=== PATIENT | male | born 1945 | race Caucasian/White ===

== ENCOUNTER 2017-04-06 17:29 | Observation (INO) | payer MEDICARE ==
[~2017-04-06] VITALS: Ht 188 cm; Wt 136.5 kg
[2017-04-06] VITALS (7 sets, daily range): BP systolic 137–177; BP diastolic 72–95; PULSE 85–99; RESP 16–20; TEMP 97.1–99.4; O2SAT 95–98
[2017-04-06] MEDS ORDERED: WARF-23 PO (17:50)
[2017-04-06] MEDS ORDERED: VITA1000 PO (17:50)
[2017-04-06] MEDS ORDERED: GLIM4TAB PO (17:50)
[2017-04-06] MEDS ORDERED: LISI-515 PO (17:50)
[2017-04-06] MEDS ORDERED: ATOR10TA15 PO (17:50)
[2017-04-06] MEDS ORDERED: HYDR12.57 PO (17:50)
[2017-04-06] MEDS ORDERED: EZET10 PO (17:50)
[2017-04-06] MEDS ORDERED: COEN50CH CHEW (17:50)
[2017-04-06] MEDS ORDERED: VITAMIN B12 (17:50)
[2017-04-06] MEDS ORDERED: METO100T PO (17:50)
[2017-04-06] MEDS ORDERED: METF1000 PO (17:50)
[2017-04-06] MEDS ORDERED: MAGN250T11 PO (17:50)
--- NOTE | 2017-04-06 17:53 | PD ---
HPI Chief Complaint: General Weakness Time Seen by Provider: 17:46 Travel History International Travel<30 days: No Contact w/Intl Traveler<30days: No Traveled to known affect area: No History of Present Illness HPI 71-year-old male with history of A. fib on Coumadin, CAD, CABG, here for evaluation of generalized malaise, nausea, generalized weakness. Symptoms started today. He is also had a nonproductive cough. He is unsure if he has had any fevers. He denies chest pain or dyspnea. No abdominal pain. No diarrhea. PFSH Past Medical History Hx Anticoagulant Therapy: Yes Cardiovascular Problems: Yes (TRIPLE BYPASS, A. FIB, HTN CHOL) Diabetes: Yes Social History Tobacco Use: No Allergies-Medications (Allergen,Severity, Reaction): Coded Allergies: No Known Allergies (Unverified , 04/06/17) Reported Meds & Prescriptions Reported Meds & Active Scripts Active Reported Vitamin D-1000 (Cholecalciferol) 1,000 Unit Tab 5,000 Units PO MOWEFR [Vitamin B12] Coq10 Gummies Adult (Coenzyme Q10 (Ubidecarenone)) 50 Mg Chew 200 Mg CHEW DAILY Magnesium Oxide 250 Mg Tab 250 Mg PO DAILY Glimepiride 4 Mg Tab 4 Mg PO BIDAC Metformin (Metformin HCl) 1,000 Mg Tab 1,000 Mg PO BIDPC Metoprolol Tartrate 100 Mg Tab 100 Mg PO BID Zetia (Ezetimibe) 10 Mg Tab 10 Mg PO DAILY Warfarin 5 Mg Tab 5 Mg PO DAILY Atorvastatin (Atorvastatin Calcium) 10 Mg Tab 10 Mg PO HS Lisinopril 20 Mg Tab 20 Mg PO DAILY Hydrochlorothiazide 12.5 Mg Cap 12.5 Mg PO DAILY Review of Systems Except as stated in HPI: all other systems reviewed are Neg Physical Exam Narrative GENERAL: Well-developed, well-nourished, awake, alert, no apparent distress. SKIN: Focused skin assessment warm/dry. Well-healed median sternotomy surgical scar as well as surgical scars to bilateral lower extremities from venous grafting. HEAD: Atraumatic. Normocephalic. EYES: Pupils equal and round. No scleral icterus. No injection or drainage. ENT: Mucous membranes pink and dry. NECK: Trachea midline. No JVD. No nuchal rigidity. CARDIOVASCULAR: Tachycardic, rate 101, irregularly irregular. RESPIRATORY: No accessory muscle use. Clear to auscultation. Breath sounds equal bilaterally. GASTROINTESTINAL: Abdomen soft, non-tender, nondistended. MUSCULOSKELETAL: No obvious deformities. No clubbing. No cyanosis. No edema. NEUROLOGICAL: Awake and alert. No obvious cranial nerve deficits. Motor grossly within normal limits. Normal speech. PSYCHIATRIC: Appropriate mood and affect; insight and judgment normal. Data Data Last Documented VS Vital Signs Date Time Temp Pulse Resp B/P (MAP) Pulse Ox O2 Delivery O2 Flow Rate FiO2 04/06/17 19:26 98 16 177/95 (122) 98 Nasal Cannula 2.00 04/06/17 18:29 99.4 Orders Orders Sepsis Workup Initiated (04/06/17 ) Complete Blood Count With Diff (04/06/17 17:46) Comprehensive Metabolic Panel (04/06/17 17:46) Prothrombin Time / Inr (Pt) (04/06/17 17:46) Act Partial Throm Time (Ptt) (04/06/17 17:46) Lactic Acid Sepsis Protocol (04/06/17 17:46) Ckmb (Isoenzyme) Profile (04/06/17 17:46) Troponin I (04/06/17 17:46) Urinalysis - C+S If Indicated (04/06/17 17:46) Influenzae A/B Antigen (04/06/17 17:46) Blood Culture (04/06/17 17:46) Chest, Single Ap (04/06/17 17:46) Blood Glucose (04/06/17 17:46) Ecg Monitoring (04/06/17 17:46) Iv Access Insert/Monitor (04/06/17 17:46) Oximetry (04/06/17 17:46) Oxygen Administration (04/06/17 17:46) Sodium Chlor 0.9% 1000 Ml Inj (Ns 1000 M (04/06/17 18:15) CKMB (04/06/17 17:47) CKMB% (04/06/17 17:47) Ct Abd/Pel W Iv Contrast(Rout) (04/06/17 18:47) Iohexol 350 Inj (Omnipaque 350 Inj) (04/06/17 19:14) Electrocardiogram (04/06/17 17:35) Place In Observation (04/06/17 ) Vital Signs (Adult) Q4H (04/06/17 20:59) Activity Bed Rest With Brp (04/06/17 ) Back Panel Padder / Telemetry FLAKITO.Q8H (04/06/17 20:59) Diet Heart Healthy (04/07/17 Breakfast) Sodium Chloride 0.9% Flush (Ns Flush) (04/06/17 21:00) Sodium Chloride 0.9% Flush (Ns Flush) (04/06/17 21:00) Acetaminophen (Tylenol) (04/06/17 21:00) Creatine Kinase (Cpk) (04/06/17 23:59) Creatine Kinase (Cpk) (04/07/17 05:59) Troponin I (04/06/17 23:59) Troponin I (04/07/17 05:59) Basic Metabolic Panel (Bmp) (04/07/17 06:00) Complete Blood Count With Diff (04/07/17 06:00) Lipid Profile (04/07/17 06:00) Electrocardiogram (04/06/17 23:59) Electrocardiogram (04/07/17 05:59) Resp Oxygen Tommie C Titrat 1-4 L (04/06/17 ) Heparin Inj (Heparin Inj) (04/06/17 22:00) Admit Order (Ed Use Only) (04/06/17 21:14) Labs Laboratory Tests Test 04/06/17 17:47 04/06/17 19:27 White Blood Count 14.4 TH/MM3 Red Blood Count 4.78 MIL/MM3 Hemoglobin 14.9 GM/DL Hematocrit 46.5 % Mean Corpuscular Volume 97.1 FL Mean Corpuscular Hemoglobin 31.1 PG Mean Corpuscular Hemoglobin Concent 32.0 % Red Cell Distribution Width 14.8 % Platelet Count 222 TH/MM3 Mean Platelet Volume 8.1 FL Neutrophils (%) (Auto) 86.0 % Lymphocytes (%) (Auto) 6.6 % Monocytes (%) (Auto) 6.5 % Eosinophils (%) (Auto) 0.1 % Basophils (%) (Auto) 0.8 % Neutrophils # (Auto) 12.4 TH/MM3 Lymphocytes # (Auto) 1.0 TH/MM3 Monocytes # (Auto) 0.9 TH/MM3 Eosinophils # (Auto) 0.0 TH/MM3 Basophils # (Auto) 0.1 TH/MM3 CBC Comment DIFF FINAL Differential Comment Prothrombin Time 23.8 SEC Prothromb Time International Ratio 2.1 RATIO Activated Partial Thromboplast Time 36.7 SEC Blood Urea Nitrogen 13 MG/DL Creatinine 1.10 MG/DL Random Glucose 145 MG/DL Total Protein 7.5 GM/DL Albumin 3.6 GM/DL Calcium Level 8.7 MG/DL Alkaline Phosphatase 47 U/L Aspartate Amino Transf (AST/SGOT) 32 U/L Alanine Aminotransferase (ALT/SGPT) 51 U/L Total Bilirubin 1.5 MG/DL Sodium Level 138 MEQ/L Potassium Level 3.7 MEQ/L Chloride Level 105 MEQ/L Carbon Dioxide Level 24.6 MEQ/L Anion Gap 8 MEQ/L Estimat Glomerular Filtration Rate 66 ML/MIN Lactic Acid Level 1.6 mmol/L Total Creatine Kinase 396 U/L Creatine Kinase MB 2.3 NG/ML Creatine Kinase MB % 0.6 % Troponin I 0.03 NG/ML Urine Color YELLOW Urine Turbidity CLEAR Urine pH 7.5 Urine Specific [place] GREATER THAN 1.035 Urine Protein 300 OR GREATER mg/dL Urine Glucose (UA) NEG mg/dL Urine Ketones 40 mg/dL Urine Occult Blood TRACE Urine Nitrite NEG Urine Bilirubin NEG Urine Leukocyte Esterase NEG Urine RBC 0-3 /hpf Urine WBC 0-2 /hpf Urine Squamous Epithelial Cells 0-5 /hpf Microscopic Urinalysis Comment CATH-CULT NOT IND MDM Medical Decision Making Medical Screen Exam Complete: Yes Emergency Medical Condition: Yes Interpretation(s) EKG: A. fib, rate 98, leftward axis, LBBB, no acute ischemic abnormalities. No prior EKG in our system for comparison. Patient is unaware of history of LBBB. Differential Diagnosis Influenza, pneumonia, sepsis, UTI, metabolic abnormality, ACS Narrative Course Initial vital signs show heart rate 99, blood pressure 177/91, pulse ox 98% on 2 L nasal cannula, rectal temp of 99.4F. CBC: WBC 14.4, hemoglobin 14.9, hematocrit 46.5, platelets 222, neutrophils 86%. CMP is remarkable for random glucose 145, otherwise unremarkable. Lactic acid is 1.6. Total CK is 396. CK-MB percent is 0.6%. Troponin is 0.03. UA shows 300 or greater protein, 40 ketones, not suggestive of UTI. Chest x-ray: Cardiomegaly without radiographic evidence of CHF. CT abdomen pelvis with IV contrast: Negative exam. Patient was made aware of all findings. He is still complaining of feeling nauseous, generalized malaise, dizzy. He has a left bundle branch block on his EKG, however I do not have a prior comparison. He does have history of CAD, CABG, A. fib and is on Coumadin. His INR is 2.1. He is not having chest pain. He will be admitted for further treatment and evaluation. Case discussed with hospitalist Dr. Esteves who will admit the patient to her service. Diagnosis Primary Impression: Generalized weakness Additional Impressions: Leukocytosis Qualified Codes: D72.829 - Elevated white blood cell count, unspecified Left bundle branch block Nausea Admitting Information Admitting Physician Requests: Observation Efrain Amaya MD Apr 06, 2017 17:53
[2017-04-06 18:04] LABS: AUTOMATED NEUTROPHIL # 12.4 TH/MM3 (1.8-7.7); BASOPHIL # 0.1 TH/MM3 (0-0.2); BASOPHIL % 0.8 % (0.0-2.0); EOSINOPHIL % 0.1 % (0.0-4.0); HEMATOCRIT 46.5 % (39.0-51.0); LYMPH % 6.6 % (9.0-44.0); MEAN CELL VOLUME 97.1 FL (80.0-100.0); MEAN CORPUSCULAR HEMOGLOBIN 31.1 PG (27.0-34.0); MONO % 6.5 % (0.0-8.0); PLATELET COUNT 222 TH/MM3 (150-450); RED BLOOD COUNT 4.78 MIL/MM3 (4.50-5.90); RED CELL DISTRIBUTION WIDTH 14.8 % (11.6-17.2); WHITE BLOOD COUNT 14.4 TH/MM3 (4.0-11.0)
[2017-04-06 18:05] LABS: HEMO FLAGS DIFF FINAL
[2017-04-06] MEDS ORDERED: SODIUM CHLOR 0.9% 1000 ML INJ 1,000 ML IV ONE (18:15)
[2017-04-06 18:16] LABS: CHLORIDE 105 MEQ/L (98-107); POTASSIUM 3.7 MEQ/L (3.5-5.1); SODIUM (NA) 138 MEQ/L (136-145)
[2017-04-06 18:20] LABS: ANION GAP 8 MEQ/L (5-15); BICARBONATE 24.6 MEQ/L (21.0-32.0); BLOOD UREA NITROGEN 13 MG/DL (7-18)
[2017-04-06 18:23] LABS: ALT (GPT) 51 U/L (12-78); AST (GOT) 32 U/L (15-37); GLOMERULAR FILTRATION RATE 66 ML/MIN (>89)
[2017-04-06 18:24] LABS: TOTAL BILIRUBIN ADULT 1.5 MG/DL (0.2-1.0)
[2017-04-06 18:26] LABS: ALKALINE PHOSPHATASE 47 U/L (45-117); CREATINE KINASE 396 U/L (39-308)
[2017-04-06 18:38] LABS: CKMB 2.3 NG/ML (0.5-3.6)
[2017-04-06 18:39] LABS: APTT (PATIENT) 36.7 SEC (24.3-30.1); INTERNATIONAL NORMALIZED RATIO 2.1 RATIO; PROTHROMBIN TIME - PATIENT 23.8 SEC (9.8-11.6)
--- NOTE | 2017-04-06 18:50 | RADRPT ---
EXAM DATE/TIME: 04/06/2017 18:34 [facility] COMPARISON: No previous studies available for comparison. INDICATIONS : Weakness and cough. MEDICAL HISTORY : Hypertension. CAD. Atrial fibrillation. SURGICAL HISTORY : CABG. ENCOUNTER: Initial ACUITY: 1 day PAIN SCORE: 0/10 LOCATION: Bilateral chest FINDINGS: Heart is enlarged. Evidence of prior median sternotomy. Central bronchopulmonary markings are fairl y well delineated. No focal infiltrates seen. Both costophrenic angles are well delineated. CONCLUSION: Cardiomegaly without radiographic evidence of congestive failure. Kt Roger MD on April 06, 2017 at 18:47 Board Certified Radiologist. This report was verified electronically.
[2017-04-06] MEDS ORDERED: IOHEXOL 350 MG/ML 10 ML VIAL (for RAD DIAG) IVCONTRAST ONE (19:14)
[2017-04-06] MEDS ORDERED: METFORMIN HOLD POST IV CONTRAST SCH (19:15)
[2017-04-06 19:34] LABS: BLOOD, URINE TRACE (NEG); GLUCOSE,URINE NEG (NEG); KETONE, URINE 40 mg/dL (NEG); NITRITE,URINE NEG (NEG); PH, URINE 7.5 (5.0-8.5)
[2017-04-06 19:39] LABS: URINE COLOR YELLOW (YELLW/STRAW)
[2017-04-06 19:40] LABS: COMMENT (UR) CATH-CULT NOT IND; CULTURE IF INDICATED CATH CULTURE NOT IND; RBC, URINE 0-3 /hpf (0-3); SQUAMOUS EPITHELIAL CELL URINE 0-5 /hpf (0-5); WBC, URINE 0-2 /hpf (0-5)
--- NOTE | 2017-04-06 20:58 | RADRPT ---
EXAM DATE/TIME: 04/06/2017 19:03 [facility] COMPARISON: No previous studies available for comparison. INDICATIONS : Nausea, vomiting and weakness. IV CONTRAST: 95 cc Omnipaque 350 (iohexol) IV ORAL CONTRAST: No oral contrast ingested. RADIATION DOSE: 22.20 CTDIvol (mGy) MEDICAL HISTORY : Cardiovascular disease. Hypertension. Diabetes. Anticoagulant therapy. SURGICAL HISTORY : CABG Cholecystectomy. ENCOUNTER: Initial ACUITY: 1 day PAIN SCALE: 0/10 LOCATION: abdomen/pelvis TECHNIQUE: Volumetric scanning of the abdomen and pelvis was performed. Using automated exposure control and ad justment of the mA and/or kV according to patient size, radiation dose was kept as low as reasonably achievable to obtain optimal diagnostic quality images. DICOM format image data is available electro nically for review and comparison. FINDINGS: LOWER LUNGS: The visualized lower lungs are clear. LIVER: Homogeneous density without lesion. There is no dilation of the biliary tree. Cholecystectomy. SPLEEN: Normal size without lesion. PANCREAS: Within normal limits. KIDNEYS: Normal in size and shape. There is no mass, stone or hydronephrosis. 1.6 cm cyst upper pole left ki dney. ADRENAL GLANDS: Within normal limits. VASCULAR: There is no aortic aneurysm. BOWEL/MESENTERY: No dilated loops of small or large bowel. No evidence of free fluid. ABDOMINAL WALL: Within normal limits. RETROPERITONEUM: There is no lymphadenopathy. BLADDER: No wall thickening or mass. REPRODUCTIVE: Within normal limits. INGUINAL: There is no lymphadenopathy or hernia. MUSCULOSKELETAL: Within normal limits for patient age. CONCLUSION: Negative CT abdomen/pelvis with intravenous contrast. Kt Roger MD on April 06, 2017 at 20:24 Board Certified Radiologist. This report was verified electronically.
[2017-04-06] MEDS ORDERED: ACETAMINOPHEN 500 MG CPLT PO PRN (21:00)
[2017-04-06] MEDS ORDERED: SODIUM CHLORIDE 0.9% FLUSH 10 ML FLUSH IV FLUSH PRN (21:00)
[2017-04-06] MEDS ORDERED: SODIUM CHLORIDE 0.9% FLUSH 10 ML FLUSH IV FLUSH SCH (21:00)
[2017-04-06] MEDS: HEPARIN SODIUM - SQ 10,000 UNITS/ML VIAL SQ SCH (21:27)
[2017-04-07] VITALS: O2SAT 94
[2017-04-07 04:00] VITALS: BP 133/58; PULSE 65; RESP 20; TEMP 96.2; O2SAT 95
[2017-04-07] MEDS: HEPARIN SODIUM - SQ 10,000 UNITS/ML VIAL SQ SCH (05:34)
[2017-04-07 06:31] LABS: AUTOMATED NEUTROPHIL # 7.2 TH/MM3 (1.8-7.7); BASOPHIL # 0.1 TH/MM3 (0-0.2); BASOPHIL % 0.8 % (0.0-2.0); EOSINOPHIL % 0.3 % (0.0-4.0); HEMATOCRIT 40.8 % (39.0-51.0); LYMPHOCYTE # 1.9 TH/MM3 (1.0-4.8); MEAN CELL VOLUME 95.5 FL (80.0-100.0); MEAN CORPUSCULAR HEMOGLOBIN 31.8 PG (27.0-34.0); MEAN CORPUSCULAR HGB CONC 33.3 % (32.0-36.0); MONO % 9.2 % (0.0-8.0); NEUT % 70.7 % (16.0-70.0); PLATELET COUNT 191 TH/MM3 (150-450); RED BLOOD COUNT 4.27 MIL/MM3 (4.50-5.90); RED CELL DISTRIBUTION WIDTH 14.4 % (11.6-17.2); WHITE BLOOD COUNT 10.1 TH/MM3 (4.0-11.0)
[2017-04-07 06:39] LABS: HEMO FLAGS DIFF FINAL
[2017-04-07 06:41] LABS: POTASSIUM 3.7 MEQ/L (3.5-5.1)
[2017-04-07 06:45] LABS: BICARBONATE 25.7 MEQ/L (21.0-32.0)
[2017-04-07 07:50] VITALS: BP 144/83; PULSE 75; RESP 20; TEMP 96.6; O2SAT 94
[2017-04-07 08:00] VITALS: PULSE 75
[2017-04-07 08:45] VITALS: O2SAT 92
--- NOTE | 2017-04-07 08:59 | EKG ---
Date Performed: 04/07/2017 Time Performed: 06:09:36 PTAGE: 71 years EKG: ATRIAL FIBRILLATION MODERATE INTRAVENTRICULAR CONDUCTION DELAY NONSPECIFIC ST & T-WAVE ABNO RMALITY ABNORMAL RHYTHM ECG PREVIOUS TRACING : 04/07/2017 00.07 DOCTOR: Nathan Newberry Interpretating Date/Time 04/07/2017 08:59:00
--- NOTE | 2017-04-07 09:07 | EKG ---
Date Performed: 04/07/2017 Time Performed: 00:07:03 PTAGE: 71 years EKG: ATRIAL FIBRILLATION WITH ABERRANT CONDUCTION OR VENTRICULAR PREMATURE COMPLEXES MODERATE IN TRAVENTRICULAR CONDUCTION DELAY NONSPECIFIC ST & T-WAVE ABNORMALITY ABNORMAL ECG PREVIOUS TRACING : 04/06/2017 17.35 DOCTOR: Nathan Newberry Interpretating Date/Time 04/07/2017 09:05:05
--- NOTE | 2017-04-07 09:14 | HHI.HP ---
[facility] Ad[facility] Diagnosis General weakness, leukocytosis, LBBB Diagnoses: (1) Gastroenteritis (2) Generalized weakness (3) Leukocytosis (4) Nausea Chief Complaint: Nausea and generalized malaise Travel History International Travel<30 Days: No Contact w/Intl Traveler <30 Da: No Traveled to Known Affected Are: No History of Present Illness 71-year-old male with a history of atrial fibrillation, diabetes type 2, presented to the ED for an acute onset of generalized malaise associated with nausea without any episode of emesis or diarrhea. Patient states within hours of eating a [employer] breakfast, he fell fatigue and tired, mostly worn out with generalized malaise along with nausea associated with right lower quadrant abdominal pain. He denies any chest pain, but was concerned about an ischemic event and presented to the ED. Normal labs include elevated WBC however abdominal CT was unremarkable. All cardiac enzymes were negative. Patient was seen this morning, he has complete resolution of his symptoms and tolerated breakfast without any compression nausea or vomiting. He only complains of tenderness to lateral side of left leg Review of Systems Except as stated in HPI: all other systems reviewed are Neg Past Family Social History Past Medical History Diabetes type 2 Atrial fibrillation Hyperlipidemia Hypertension Past Surgical History TRIPLE BYPASS Cholecystectomy Reported Medications Vitamin D-1000 (Cholecalciferol) 1,000 Unit Tab 5,000 Units PO MOWEFR [Vitamin B12] Coq10 Gummies Adult (Coenzyme Q10 (Ubidecarenone)) 50 Mg Chew 200 Mg CHEW DAILY Magnesium Oxide 250 Mg Tab 250 Mg PO DAILY Glimepiride 4 Mg Tab 4 Mg PO BIDAC Metformin (Metformin HCl) 1,000 Mg Tab 1,000 Mg PO BIDPC Metoprolol Tartrate 100 Mg Tab 100 Mg PO BID Zetia (Ezetimibe) 10 Mg Tab 10 Mg PO DAILY Warfarin 5 Mg Tab 5 Mg PO DAILY Atorvastatin (Atorvastatin Calcium) 10 Mg Tab 10 Mg PO HS Lisinopril 20 Mg Tab 20 Mg PO DAILY Hydrochlorothiazide 12.5 Mg Cap 12.5 Mg PO DAILY Allergies: Coded Allergies: No Known Allergies (Unverified , 04/06/17) Family History Father from complication of CVA\ Mother from complication of Alzheimer Social History She denies tobacco, alcohol or easy drug intake Physical Exam Vital Signs Vital Signs Date Time Temp Pulse Resp B/P (MAP) Pulse Ox O2 Delivery O2 Flow Rate FiO2 04/07/17 08:45 92 21 04/07/17 04:00 96.2 65 20 133/58 (83) 95 04/07/17 00:00 94 21 04/06/17 23:15 85 04/06/17 22:57 97.1 87 20 137/79 (98) 95 04/06/17 22:55 04/06/17 21:31 85 16 152/72 (98) 98 Nasal Cannula 2.00 04/06/17 19:26 98 16 177/95 (122) 98 Nasal Cannula 2.00 04/06/17 19:26 98 Nasal Cannula 2.00 04/06/17 18:29 99.4 90 16 173/92 (119) 98 Nasal Cannula 2.00 04/06/17 18:10 16 97 Nasal Cannula 2.00 04/06/17 18:05 16 97 Nasal Cannula 2.00 04/06/17 18:04 98 Nasal Cannula 2.00 04/06/17 17:41 98.8 99 16 177/91 (119) 98 Physical Exam GENERAL: This is a well-nourished, well-developed patient, in no apparent distress. SKIN: No rashes, ecchymoses or lesions. Cool and dry. HEAD: Atraumatic. Normocephalic. No temporal or scalp tenderness. EYES: Pupils equal round and reactive. Extraocular motions intact. No scleral icterus. No injection or drainage. ENT: Nose without bleeding, purulent drainage or septal hematoma. Throat without erythema, tonsillar hypertrophy or exudate. Uvula midline. Airway patent. NECK: Trachea midline. No JVD or lymphadenopathy. Supple, nontender, no meningeal signs. CARDIOVASCULAR: Regular rate and rhythm without murmurs, gallops, or rubs. RESPIRATORY: Clear to auscultation. Breath sounds equal bilaterally. No wheezes , rales, or rhonchi. GASTROINTESTINAL: Abdomen soft, non-tender, nondistended. No hepato-splenomegaly , or palpable masses. No guarding. MUSCULOSKELETAL: Extremities without clubbing, cyanosis, or edema. No joint tenderness, effusion, or edema noted. +TTP Left lateral leg. Negative Homans sign bilaterally. NEUROLOGICAL: Awake and alert. Cranial nerves II through XII intact. Motor and sensory grossly within normal limits. Five out of 5 muscle strength in all muscle groups. Normal speech. Laboratory Laboratory Tests Test 04/06/17 17:47 04/06/17 19:27 04/07/17 00:15 04/07/17 05:10 White Blood Count 14.4 10.1 Red Blood Count 4.78 4.27 Hemoglobin 14.9 13.6 Hematocrit 46.5 40.8 Mean Corpuscular Volume 97.1 95.5 Mean Corpuscular Hemoglobin 31.1 31.8 Mean Corpuscular Hemoglobin Concent 32.0 33.3 Red Cell Distribution Width 14.8 14.4 Platelet Count 222 191 Mean Platelet Volume 8.1 8.4 Neutrophils (%) (Auto) 86.0 70.7 Lymphocytes (%) (Auto) 6.6 19.0 Monocytes (%) (Auto) 6.5 9.2 Eosinophils (%) (Auto) 0.1 0.3 Basophils (%) (Auto) 0.8 0.8 Neutrophils # (Auto) 12.4 7.2 Lymphocytes # (Auto) 1.0 1.9 Monocytes # (Auto) 0.9 0.9 Eosinophils # (Auto) 0.0 0.0 Basophils # (Auto) 0.1 0.1 CBC Comment DIFF FINAL DIFF FINAL Differential Comment Prothrombin Time 23.8 Prothromb Time International Ratio 2.1 Activated Partial Thromboplast Time 36.7 Blood Urea Nitrogen 13 13 Creatinine 1.10 0.99 Random Glucose 145 99 Total Protein 7.5 Albumin 3.6 Calcium Level 8.7 8.3 Alkaline Phosphatase 47 Aspartate Amino Transf (AST/SGOT) 32 Alanine Aminotransferase (ALT/SGPT) 51 Total Bilirubin 1.5 Sodium Level 138 139 Potassium Level 3.7 3.7 Chloride Level 105 105 Carbon Dioxide Level 24.6 25.7 Anion Gap 8 8 Estimat Glomerular Filtration Rate 66 74 Lactic Acid Level 1.6 Total Creatine Kinase 396 264 256 Creatine Kinase MB 2.3 Creatine Kinase MB % 0.6 Troponin I 0.03 0.03 0.02 Urine Color YELLOW Urine Turbidity CLEAR Urine pH 7.5 Urine Specific [place] GREATER THAN 1.035 Urine Protein 300 OR GREATER Urine Glucose (UA) NEG Urine Ketones 40 Urine Occult Blood TRACE Urine Nitrite NEG Urine Bilirubin NEG Urine Leukocyte Esterase NEG Urine RBC 0-3 Urine WBC 0-2 Urine Squamous Epithelial Cells 0-5 Microscopic Urinalysis Comment CATH-CULT NOT IND Date/Time Source Procedure Growth Status 04/06/17 17:53 Blood Peripheral Aerobic Blood Culture Pending Received 04/06/17 17:53 Blood Peripheral Anaerobic Blood Culture Pending Received 04/06/17 18:10 Nasal Washing Influenza Types A,B Antigen (LEDA) - Final NEGATIVE FOR FLU A AND B ANTIGEN.... Complete Result Diagram: 04/07/17 0510 04/07/17 0510 Imaging Last Impressions Abdomen/Pelvis CT 04/06/17 1847 Signed Impressions: Service Date/Time: Thursday, April 06, 2017 19:03 - CONCLUSION: Negative CT abdomen/pelvis with intravenous contrast. Kt Roger MD Chest X-Ray 04/06/17 1746 Signed Impressions: Service Date/Time: Thursday, April 06, 2017 18:34 - CONCLUSION: Cardiomegaly without radiographic evidence of congestive failure. Kt Roger MD Caprini VTE Risk Assessment Caprini VTE Risk Assessment: Mod/High Risk (score >= 2) Caprini Risk Assessment Model Point Value = 1 Point Value = 2 Point Value = 3 Point Value = 5 Age 41-60 Minor surgery BMI > 25 kg/m2 Swollen legs Varicose veins or History of unexplained or recurrent spontaneous Oral contraceptives or hormone replacement Sepsis (< 1 month) Serious lung disease, including pneumonia (< 1 month) Abnormal pulmonary function Acute myocardial infarction Congestive heart failure (< 1 month) History of inflammatory bowel disease Medical patient at bed rest Age 61-74 Arthroscopic surgery Major open surgery (> 45 min) Laparoscopic surgery (> 45 min) Malignancy Confined to bed (> 72 hours) Immobilizing plaster cast Central venous access Age >= 75 History of VTE Family history of VTE Factor V Leiden Prothrombin [id number] Lupus anticoagulant Anticardiolipin antibodies Elevated serum homocysteine Heparin-induced thrombocytopenia Other congenital or acquired thrombophilia Stroke (< 1 month) Elective arthroplasty Hip, pelvis, or leg fracture Acute spinal cord injury (< 1 month) Prophylaxis Regimen Total Risk Factor Score Risk Level Prophylaxis Regimen 0-1 Low Early ambulation 2 Moderate Order ONE of the following: *Sequential Compression Device (SCD) *Heparin 5000 units SQ BID 3-4 Higher Order ONE of the following medications: *Heparin 5000 units SQ TID *Enoxaparin/Lovenox 40 mg SQ daily (WT < 150 kg, CrCl > 30 mL/min) *Enoxaparin/Lovenox 30 mg SQ daily (WT < 150 kg, CrCl > 10-29 mL/min) *Enoxaparin/Lovenox 30 mg SQ BID (WT < 150 kg, CrCl > 30 mL/min) AND/OR *Sequential Compression Device (SCD) 5 or more Highest Order ONE of the following medications: *Heparin 5000 units SQ TID (Preferred with Epidurals) *Enoxaparin/Lovenox 40 mg SQ daily (WT < 150 kg, CrCl > 30 mL/min) *Enoxaparin/Lovenox 30 mg SQ daily (WT < 150 kg, CrCl > 10-29 mL/min) *Enoxaparin/Lovenox 30 mg SQ BID (WT < 150 kg, CrCl > 30 mL/min) AND *Sequential Compression Device (SCD) Assessment and Plan Problem List: (1) Gastroenteritis ICD Code: K52.9 - Noninfective gastroenteritis and colitis, unspecified (2) Leukocytosis ICD Code: D72.829 - Elevated white blood cell count, unspecified Status: Acute (3) Generalized weakness ICD Code: R53.1 - Weakness Status: Acute Assessment and Plan 71-year-old man with Gastroenteritis CT abdomen noted and review by me without any acute finding Symptoms resolved with conservative treatment with IV fluid hydration, antiemetic. Generalized malaise Likely due to above gastroenteritis Chest x-ray noted and review by me without any acute finding. Cardiac enzymes 3 unremarkable. Now resolved History of atrial fibrillation Resume Coumadin, Lopressor and monitor INR/PT Diabetes type 2 Hold metformin, resume other oral glycemic agents Insulin sliding scale Lateral left lower extremity tenderness Unlikely DVT He was advised to follow-up with PCP History of hypertension, hyperlipidemia and other chronic medical conditions Resume outpatient medications DVT prophylaxis: Coumadin Patient's condition improved since admission, therefore he will be discharged home Discharge patient to home Condition on discharge: Improved ADA Diet as tolerated Ad Carmella activity Rx written:none Follow-up with primary care physician in 1week, regarding left lower extremity tenderness Code Status Full code Discussed Condition With Patient Problem Qualifiers (1) Leukocytosis: Qualified Codes: D72.829 - Elevated white blood cell count, unspecified Stu Timmons MD Apr 07, 2017 09:14
[2017-04-07] MEDS ORDERED: METOPROLOL TARTRATE 100 MG TAB PO SCH (09:15)
[2017-04-07] MEDS ORDERED: GLIMEPIRIDE 4 MG TAB PO SCH (09:15)
[2017-04-07] MEDS ORDERED: LISINOPRIL 20 MG TAB PO SCH (09:15)
--- NOTE | 2017-04-07 09:48 | EKG ---
Date Performed: 04/06/2017 Time Performed: 17:35:10 PTAGE: 71 years EKG: ATRIAL FIBRILLATION WITH ABERRANT CONDUCTION OR VENTRICULAR PREMATURE COMPLEXES LEFT BUNDLE BRANCH BLOCK ABNORMAL ECG NO PREVIOUS TRACING DOCTOR: Nathan Newberry Interpretating Date/Time 04/07/2017 09:46:49
[2017-04-07 10:40] LABS: HDL CHOLESTEROL 44.6 MG/DL (40.0-60.0)
[2017-04-07] MEDS ORDERED: ATORVASTATIN 10 MG TAB PO SCH (21:00)
[2017-04-08] MEDS ORDERED: EZETIMIBE 10 MG TAB PO SCH (09:00)
[2017-04-08] MEDS ORDERED: MAGNESIUM OXIDE 400 MG TAB PO SCH (09:00)
[2017-04-08] MEDS ORDERED: WARFARIN SOD 5 MG TAB PO SCH (16:00)
== END 2017-04-07 11:50 | disposition home or self-care (01) ==
LOC: PHED 17:29 → PHEDA 21:15 → PH3A 22:41
PROVIDERS: ADMIT Hospitalist; ATTEND Hospitalist
DX: K52.9 Noninfective gastroenteritis and colitis, unspecified (principal); D72.829 Elevated white blood cell count, unspecified; R53.1 Weakness; R05 Cough; R11.2 Nausea with vomiting, unspecified; I44.7 Left bundle-branch block, unspecified; R53.81 Other malaise; R42 Dizziness and giddiness; R94.31 Abnormal electrocardiogram [ECG] [EKG]; I25.10 Atherosclerotic heart disease of native coronary artery without angina pectoris; I11.9 Hypertensive heart disease without heart failure; E11.9 Type 2 diabetes mellitus without complications; E78.5 Hyperlipidemia, unspecified; I48.91 Unspecified atrial fibrillation; Z79.899 Other long term (current) drug therapy; Z79.84 Long term (current) use of oral hypoglycemic drugs; Z79.01 Long term (current) use of anticoagulants; Z95.1 Presence of aortocoronary bypass graft
CPT/HCPCS: 71010; 74177; 80048; 80053; 80061; 81001; 82550; 82552; 83605; 84484; 85025; 85610; 85730; 87040; 87804; 93005; 96360; 96361; 96372; 99285; G0378; J1644; J7030; Q9967